=== PATIENT | female | born 1940 | race Caucasian/White ===

== ENCOUNTER → 2021-08-19 | Day surgery (SDC) | payer OTHER ==
[~2021-08-19] VITALS: Ht 157.5 cm; Wt 61.2 kg
[~2021-08-19] MED LIST: OYSTER SHELL 51 EACH PO; SPIRIVA18 MCG INH; SYMBICORT 80-10.2 GM INH; VENTOLIN HFA18 GM INH
== END | disposition home or self-care (01) ==
LOC: FAS 06:36
DX: G56.01 Carpal tunnel syndrome, right upper limb (principal); J44.9 Chronic obstructive pulmonary disease, unspecified
CPT/HCPCS: J1100; J1885; J2250; J2405; J2704; J3010; J7120